=== PATIENT | female | born 1965 | race Caucasian/White ===

== ENCOUNTER 2021-09-25 13:50 | Outpatient (CLI) | payer BC, SELFPAY ==
--- NOTE | 2021-10-06 11:27 | WPDSLEEPSTUD ---
Sleep Study Date of Study: 09/25/21 Ordering Provider: ROSHNI Farah Interpreting Physician: Nini Peña MD Sleep Study Type: Polysomnogram Height: 1.65 m Weight: 78.925 kg Body Mass Index: 28.9 Neck Circumference (inches): 13.5 [place]: 9 Reason for Sleep Study Hypersomnolence Sleep History Margaret Sewell is a 55-year-old woman with restless sleep, frequent night time awakenings, and frequent loud snoring. She has excess daytime sleepiness. She has taken sleeping pills in the past. She occasionally awakens from sleep feeling short of breath and occasionally awakens at night with heartburn, belching and coughing. She constantly has trouble sleeping with a cold. She rarely wakes up gasping for breath at night. She does not have breathing problems at night observed by others. She frequently sweats excessively at night. She rarely notices her heart pounding or beating irregularly at night. She rarely falls asleep during the day, rarely falls asleep to never falls asleep while driving. She does not have loss of muscle tone with strong emotion. She occasionally has daytime difficulties due to excessive sleepiness. She rarely feels paralyzed on waking or falling asleep. She rarely has vivid dreamlike scenes upon awakening or falling asleep. She does not feel afraid to go to sleep. She rarely has nightmares. She occasionally remembers her dreams. She frequently has racing thoughts. She occasionally feels sad, depressed and anxious. She frequently has muscular tension. She a visually notices parts body jerk aching. She does not kick at night. She patient has crawling and aching in her legs and occasionally has pain during night. She occasionally has morning jaw pain. She occasionally grinds her teeth during sleep. She frequently is bothered by pain during the day and frequently awakened by pain at night. She frequently wakes up feeling stiff in the morning with sore achy muscles and pain in the neck and spine. She has headaches, palpitations, fatigue, memory and concentration difficulties. Her partner moves to the sofa at night due to her snoring. She reports on her sleep survey that she had a past history of anxiety and depression. Normal bedtime is between 9:00 p.m. and 9:30 p.m. falling asleep within 30 minutes, typically awaken 2-3 times at night to go the bathroom. She wakes in the morning between 4:00 a.m. and 4:30 a.m.. On weekends, she goes to bed between 10:00 p.m. and 11:00 p.m., wakes at 8:00 a.m. She estimates getting 6-7 hours of sleep at night. She does not generally take naps in the afternoon or evening. A short nap sometimes is refreshing. She is usually drowsy in the morning for 3 hours or longer. She feels better in the morning compared to other times of day. Habits: Never smoked tobacco. Caffeine: 2 cups of tea daily. Alcohol on occasion. No recreational drugs. [facility] Past Medical History Medical History Chronic LLQ pain Dietary counseling and surveillance (09/01/16) Elevated TSH Irritable bowel syndrome with both constipation and diarrhea Low sodium levels Other chronic pain Screening for diabetes mellitus Screening for lipid disorders Screening for thyroid disorder Surgical History Surgical History (Updated 10/06/21 @ 11:46 by Nini Peña MD) H/O: hysterectomy History of cholecystectomy History of tonsillectomy Family History Family History Father Cerebrovascular accident Heart disease Alzheimer's disease Mother Cerebrovascular accident Psoriatic arthritis Grandparent Cerebrovascular accident Family history of type 2 diabetes mellitus Sibling No problems noted. Other Hypertension Social History Social History Second hand tobacco smoke exposure: Yes Alcohol intake: current Subs
[2021-10-06 15:14] VITALS: BMI 28.9
--- NOTE | 2021-10-17 16:12 | WPDSLEEPSTUD ---
Sleep Study Date of Study: 09/25/21 Ordering Provider: ROSHNI Farah Interpreting Physician: Cristiane Neville DO Sleep Study Type: Polysomnogram Height: 1.65 m Weight: 78.925 kg Body Mass Index: 28.9 Neck Circumference (inches): 13.5 [place]: 9 Reason for Sleep Study Loud snoring, frequent nighttime awakenings Sleep History The patient is a 55-year-old female with irritable bowel syndrome, asthma, GERD, seasonal allergies, anxiety and depression that had a sleep study ordered for evaluation of sleep apnea. The patient occasionally awakens from sleep short of breath. She occasionally awakens at night with heartburn, belching or cough. She frequently snores loud enough that others complain. She constantly has trouble breathing when she has a cold. She rarely wakes up gasping for air throughout the night. She denies having breathing problems at night observed by herself or others. She frequently sweats excessively at night. She rarely has heart palpitations or irregular heartbeats during the night. She rarely falls asleep during the day and never while driving. She occasionally has trouble at school or work due to sleepiness. He rarely feels unable to move when waking up or falling asleep. She denies experiencing loss of muscle tone when extremely emotional. She rarely experiences vivid dreamlike scenes upon awakening or falling asleep. He rarely has nightmares. She frequently has thoughts racing through her mind. She occasionally feels sad, depressed and anxious. She frequently has muscular tension. She occasionally notices parts of her body jerk. She denies kicking during the night. She occasionally has crawling and aching feelings in her legs. She occasionally has leg pain during the night. She occasionally grinds her teeth during sleep and occasionally awakens with morning jaw pain. She is frequently bothered by pain during the day and frequently awakened by pain during the night. She frequently wakes up feeling stiff in the morning. She frequently wakes up with sore achy muscles. She frequently wakes up with pain in the neck, spine and other joints. She goes to bed between 9 and 9:30 p.m. on weekdays and between 10 and 11:00 p.m. on weekends. Takes her 30 minutes to fall asleep. She wakes up 2-3 times throughout the night to use the restroom. Sometimes she is unable to fall back asleep. She wakes up between 4 and 4:30 a.m. on weekdays and 8:00 a.m. on the weekends. She typically gets 6-7 hours of sleep per night. She currently lives with a significant other. She does not consume any caffeinated beverages within 2 hours of bedtime. She does not engage in physical exercise before bedtime. She will watch television before falling asleep. She does not take naps in the afternoon or the evening. She drinks 2 cups of caffeinated tea per day. She will occasionally drink alcohol. She denies tobacco and recreational drug use. [facility] Past Medical History Medical History Chronic LLQ pain Dietary counseling and surveillance (09/01/16) Elevated TSH Irritable bowel syndrome with both constipation and diarrhea Low sodium levels Other chronic pain Screening for diabetes mellitus Screening for lipid disorders Screening for thyroid disorder Surgical History Surgical History H/O: hysterectomy History of cholecystectomy History of tonsillectomy Family History Family History Father Cerebrovascular accident Heart disease Alzheimer's disease Mother Cerebrovascular accident Psoriatic arthritis Grandparent Cerebrovascular accident Family history of type 2 diabetes mellitus Sibling No problems noted. Other Hypertension Social History Social History Second hand tobacco sm
[2021-10-17 16:29] VITALS: BMI 28.9
== END 2021-09-26 07:06 | disposition home or self-care (01) ==
LOC: ANHCSM 13:53
PROVIDERS: PCP Family Medicine; Visit Provider Nurse Practitioner Family
DX: R06.83 Snoring (principal); F51.8 Other sleep disorders not due to a substance or known physiological condition; R53.83 Other fatigue; G47.10 Hypersomnia, unspecified
CPT/HCPCS: 95810

== ENCOUNTER 2022-03-13 09:30 | Outpatient (CLI) | payer BC, SELFPAY ==
--- NOTE | ~2022-03-13 | MM_ITS ---
EXAMINATION: MM screening yumiko BI w donn HISTORY: Screening mammogram TECHNIQUE: Craniocaudal and mediolateral oblique 3-D tomosynthesis images were obtained and synthetic 2-D images were generated. CAD analysis was submitted and interpreted. COMPARISON: No prior mammogram is available for comparison at this institution. BREAST PARENCHYMAL COMPOSITION: There are scattered areas of fibroglandular density. FINDINGS: There is no evidence of suspicious mass, calcification, or architectural distortion to sugg est malignancy in either breast. There has been no suspicious interval change. IMPRESSION: 1. No mammographic evidence of malignancy. 2. Recommend routine screening mammography in one year. BI-RADS Category 1: Negative Reviewed, dictated and finalized at location A.
== END 2022-03-13 09:31 | disposition home or self-care (01) ==
PROVIDERS: PCP Family Medicine; Visit Provider Nurse Practitioner Women's Health
DX: Z12.31 Encounter for screening mammogram for malignant neoplasm of breast (principal); R73.09 Other abnormal glucose
CPT/HCPCS: 36415; 77063; 77067; 83036

== ENCOUNTER 2023-04-16 14:02 | Outpatient (CLI) | payer BC, SELFPAY ==
--- NOTE | ~2023-04-16 | MM_ITS ---
EXAMINATION: MM screening yumiko BI w donn HISTORY: Screening TECHNIQUE: Craniocaudal and mediolateral oblique 3-D tomosynthesis images were obtained and synthetic 2-D images were generated. CAD analysis was submitted and interpreted. COMPARISON: Comparison to multiple prior studies sequentially, with oldest reviewed study dated 03/30. BREAST PARENCHYMAL COMPOSITION: Breast composed of scattered areas of fibroglandular density FINDINGS: There is no evidence of suspicious mass, calcification, or architectural distortion to sugg est malignancy in either breast. There has been no suspicious interval change. IMPRESSION: 1. No mammographic evidence of malignancy. 2. Recommend routine screening mammography in one year. BI-RADS Category 1: Negative Reviewed, dictated and finalized at location A.
== END 2023-04-16 14:03 | disposition home or self-care (01) ==
LOC: ANHIMG 14:06
PROVIDERS: PCP Family Medicine; Visit Provider Obstetrics & Gynecology
DX: Z12.31 Encounter for screening mammogram for malignant neoplasm of breast (principal)
CPT/HCPCS: 77063; 77067

== ENCOUNTER 2024-05-28 21:24 | Emergency (ER) | payer BC, SELFPAY ==
--- NOTE | ~2024-05-28 | CT_ITS ---
Non-contrast CT scan of the Abdomen and Pelvis Clinical indication: Abdominal pain Technique: 2.5 mm axial scans were obtained through the abdomen and pelvis without intravenous or or al contrast. Dose reduction technique was used on this scan by utilizing automated exposure control a nd iterative reconstruction technique. The dose-length product (DLP) was 585.54 mGy-cm. Findings: Images through the lung bases reveal no abnormalities. There is a 7 x 3 mm stone at the very proximal left ureter, with mild left hydronephrosis. No right r enal or right ureteral stone. No right hydronephrosis. The liver, spleen, pancreas, and adrenals appear normal. Cholecystectomy clips are present. There is no aortic aneurysm. There is no evidence of bowel obstruction. Images through the pelvis were performed. There is no evidence of ascites or lymphadenopathy. Urinary bladder unremarkable. Status post probable hysterectomy. No pelvic mass seen. Impression: 7 x 3 mm proximal left ureteral stone with mild left hydronephrosis. Reviewed, dictated and finalized at [facility]. [employer] Impression: 7 x 3 mm proximal left ureteral stone with mild left hydronephrosis.
[2024-05-28 21:26] VITALS: BP 152/98; PULSE 102; RESP 16; TEMP 35.8; O2SAT 99
[2024-05-29 00:18] VITALS: BP 162/97; PULSE 89; RESP 16; O2SAT 98
[2024-05-29 00:31] LABS: Add Urine Microscopic? NO; Appearance Urine Clear (Clear); Bilirubin Urine Negative (Negative); Blood Urine Negative (Negative); Color Urine Yellow (Yellow); Glucose Urine UA Negative (Negative); Ketones Urine Negative (Negative); Leukocyte Esterase Ur Negative LEU/UL (Negative); Nitrate Urine Negative (Negative); Protein Urine Negative (Negative); Specific Grav Ur 1.005 (1.001-1.035); Urobilinogen Urine 0.2 mg/dL (<2.0)
[2024-05-29 00:49] LABS: Basophils Percent Auto 0.2 % (0.2-1.2); Eosinophils Absolute Auto 0.1 K/mm3 (0-0.3); Eosinophils Percent Auto 0.5 % (0-4.4); Hematocrit 46.5 % (37.0-47.0); Hemoglobin 16.3 g/dL (12.0-15.0); Immature Granulocyte Absolute 0.04 K/mm3 (0.00-0.031); Immature Granulocyte Percent A 0.4 % (0-0.5); Lymphocytes Percent Auto 18.8 % (18.3-44.2); Mean Corpuscular HGB Conc 35.1 g/dl (32-36); Mean Corpuscular Hemoglobin 30.5 pg (26-34); Mean Corpuscular Volume 87.1 fl (80-100); Mean Platelet Volume 10.3 fl (7.4-10.4); Monocytes Absolute Auto 0.7 K/mm3 (0.1-0.6); Monocytes Percent Auto 6.5 % (2.6-8.5); Neutrophils Absolute Auto 8.3 K/mm3 (1.3-6.7); Neutrophils Percent Auto 73.6 % (45.5-73.1); Platelet Count Result 242 k/mm3 (150-375); Red Blood Count 5.34 M/mm3 (4.2-5.4); White Blood Count 11.2 K/mm3 (4.5-10.0)
[2024-05-29 01:06] LABS: Alanine Aminotransferase 24 U/L (6-35); Albumin Level 4.6 g/dL (3.5-5.1); Alkaline Phosphatase 121 U/L (38-126); Anion Gap 5 mmol/L (4-12); Aspartate Amino Transferase 28 U/L (14-36); Bilirubin,Total 0.6 mg/dL (0.2-1.3); Blood Urea Nitrogen 18 mg/dL (7-17); Calcium 10.1 mg/dL (8.4-10.2); Carbon Dioxide 29 mmol/L (22-30); Chloride 106 mmol/L (98-107); Estimated CRCL calculation 65 ml/min; Estimated Glomerular Filt Rate > 60; Glucose 128 mg/dL (65-110); Lipase 84 U/L (23-300); Potassium 4.8 mmol/L (3.4-5.0); Sodium 140 mmol/L (137-145)
--- NOTE | 2024-05-29 01:15 | ED_ITS ---
HPI - Abdominal Pain General Chief Complaint: Urogenital-Female Stated Complaint: Urogenital Time Seen by Provider: 05/29/24 00:03 History of Present Illness HPI narrative: 58-year-old female with history of CHYA, hyperlipidemia, IBS presents to the emergency department for left flank pain and left abdominal pain that started today. Patient endorses a history of kidney stones in 2010 and is concerned she has another kidney stone. She describes the pain is colicky in nature. States it was worse earlier today and is about a 3/10 at the time of my evaluation. She denies nausea or vomiting fever, dysuria or hematuria, urinary frequency urgency. She endorses a history of exploratory laparotomy for endometriosis and laparoscopic cholecystectomy. Related Data Allergies Allergy/AdvReac Type Severity Reaction Status Date / Time iodine Allergy Intermediate Rash Verified 06/22/23 15:33 latex Allergy Intermediate Rash Verified 06/22/23 15:33 povidone-iodine Allergy Intermediate rash Verified 06/22/23 15:33 Sulfa (Sulfonamide Allergy Intermediate Rash Verified 06/22/23 15:33 Antibiotics) fentanyl Allergy Unknown SEVERE Verified 06/22/23 15:33 VOMITING Contrast Media Allergy Intermediate Rash Uncoded 06/22/23 15:33 Review of Systems Review of Systems: All systems reviewed & are unremarkable except as noted in HPI and below PMFSH Past Medical History Medical History Chronic LLQ pain Dietary counseling and surveillance (09/01/16) Elevated TSH Irritable bowel syndrome with both constipation and diarrhea Low sodium levels Other chronic pain Screening for diabetes mellitus Screening for lipid disorders Screening for thyroid disorder Surgical History Surgical History H/O: hysterectomy History of cholecystectomy History of tonsillectomy Family History Family History Father Cerebrovascular accident Heart disease Alzheimer's disease Mother Cerebrovascular accident Psoriatic arthritis Grandparent Cerebrovascular accident Family history of type 2 diabetes mellitus Sibling No problems noted. Other Hypertension Social History Social History Smoking status: Never smoker Second hand tobacco smoke exposure: Yes Alcohol intake: current Substance use: never Substance use type: does not use Do You Feel Safe in your Home?: Yes Lack of Transportation: No Lack of Food: Never True Current Housing: I Have Housing Concerned About Future Housing: No Difficulty Paying Gas/Electric Bills: No Difficulty Paying for Meds: No Currently Unemployed: No Education: Bachelor's Degree Difficulty w/ Childcare or Family Care: No Living arrangements: with family Occupation/Education: occupation Additional occupation/education comments: RN Gender identity (if verbalized by the patient): Female Exam Narrative: GENERAL: Well-appearing, well-nourished, and in no acute distress. HEAD: Normocephalic, atraumatic. EYES: EOMI. ENT: Nares clear, no rhinorrhea or epistaxis. Mucous membranes moist. NECK: Supple. CHEST: Clear to auscultation. No respiratory distress. HEART: Regular rate and rhythm. No murmur heard. Normal peripheral pulses. ABDOMEN: Normoactive bowel sounds. Abdomen soft with tenderness in the left upper and left lower quadrants. No rebound or rigidity. No guarding. left- sided CVA tenderness EXTREMITIES: Normal range of motion. No edema. SKIN: Warm, dry, no rash. NEURO: No focal deficits. Alert and oriented x3 Course Vital Signs Vital signs: Vital Signs Temperature 96.5 F L 05/28/24 21:26 Pulse Rate 102 H 05/28/24 21:26 Respiratory Rate 16 05/28/24 21:26 Blood Pressure 152/98 H 05/28/24 21:26 Pulse Oximetry 99 05/28/24 21:26 Oxygen Delivery Room Air 05/28/24 21:26 Temperature 96.5 F L 05/28/24 21:26 Pulse Rate 89 05/29/24 00:18 Respiratory Rate 16 05/29/24 00:18 Blood Pressure 162/97 H 05/29/24 00:18 Pulse Oximetry 98 05/29/24 00:18 Oxygen Delivery Room Air 05/28/24 21:26 MDM - Abdominal Pain MDM Narrative Medical decision making narrative: 58-year-old female presents emergency department for left flank pain and left- sided abdominal pain that started today. Vitals with elevated blood pressure. She is afebrile nontoxic appearing. Exam is significant for the above. CBC with mild leukocytosis of 11.2. Chemistries are unremarkable with normal creatinine. UA without infection or UTI. Lipase is normal. CT abdomen pelvis shows an obstructing 7 mm left proximal ureteral stone with mild hydronephrosis of the left kidney. Patient updated on all workup. Upon re-evaluation she remains resting comfortably in exam bed and politely declining pain medications. discussed the case with Urology on-call, Dr. Santiago, who advises the patient can be admitted to the hospital if she desires for discharge home if she wishes. The patient is requesting to be discharged home. Will provide [place], Zofran, Flomax and urine strainer. She was given follow-up with urology discussed strict ED return precautions. She is agreeable with the plan and verbalized understanding. Discharged in stable condition. Lab Data 05/29/24 00:43 05/29/24 00:43 Labs: Lab Results 05/29/24 05/29/24 Range/Units 00:02 00:43 WBC 11.2 H (4.5-10.0) K/mm3 RBC 5.34 (4.2-5.4) M/mm3 Hgb 16.3 H (12.0-15.0) g/dL Hct 46.5 (37.0-47.0) % MCV 87.1 (80-100) fl MCH 30.5 (26-34) pg MCHC 35.1 (32-36) g/dl RDW 12.0 (11.5-14.5) % Plt Count 242 (150-375) k/mm3 MPV 10.3 (7.4-10.4) fl Immature Gran % (Auto) 0.4 (0-0.5) % Neut % (Auto) 73.6 H (45.5-73.1) % Lymph % (Auto) 18.8 (18.3-44.2) % [place] % (Auto) 6.5 (2.6-8.5) % Eos % (Auto) 0.5 (0-4.4) % Baso % (Auto) 0.2 (0.2-1.2) % Lymph # (Auto) 2.10 (0.9-3.2) K/mm3 [place] # (Auto) 0.7 H (0.1-0.6) K/mm3 Eos # (Auto) 0.1 (0-0.3) K/mm3 Baso # (Auto) 0.0 (0.0-0.1) K/mm3 Abs Immat Gran (auto) 0.04 H (0.00-0.031) K/mm3 Absolute Neuts (auto) 8.3 H (1.3-6.7) K/mm3 Absolute Nucleated RBC 0.000 (0.0-0.012) K/mm3 Nucleated RBC % 0.0 (0.0-0.2) % Sodium 140 (137-145) mmol/L Potassium 4.8 (3.4-5.0) mmol/L Chloride 106 (98-107) mmol/L Carbon Dioxide 29 (22-30) mmol/L Anion Gap 5 (4-12) mmol/L BUN 18 H (7-17) mg/dL Creatinine 0.90 (0.7-1.0) mg/dL Estim Creat Clear Calc 65 ml/min Estimated GFR > 60 (59 - ) Glucose 128 H (65-110) mg/dL Calcium 10.1 (8.4-10.2) mg/dL Total Bilirubin 0.6 (0.2-1.3) mg/dL AST 28 (14-36) U/L ALT 24 (6-35) U/L Alkaline Phosphatase 121 (38-126) U/L Total Protein 8.0 (6.3-8.2) g/dL Albumin 4.6 (3.5-5.1) g/dL Lipase 84 (23-300) U/L Urine Color Yellow (Yellow) Urine Appearance Clear (Clear) Urine pH 6.0 (5.0-9.0) Ur Specific [place] 1.005 (1.001-1.035) Urine Protein Negative (Negative) mg/dL Urine Glucose (UA) Negative (Negative) mg/dL Urine Ketones Negative (Negative) mg/dL Ur Blood (Man) Negative (Negative) Urine Nitrate Negative (Negative) Urine Bilirubin Negative (Negative) Urine Urobilinogen 0.2 (<2.0) mg/dL Leukocyte Esterase Rfl Negative (Negative) BEN/UL Discharge Plan Discharge Clinical Impression: Calculus of left ureter Patient Disposition: Home, Self-Care Condition: Stable Instructions: Antibiotic Form, Kidney Stones (ED) Additional Instructions: Your evaluated in the emergency department for abdominal pain and flank pain. You were found have a 7 mm kidney stone in the left ureter. Take the medications as directed as needed follow-up closely with Urology. Return to the emergency department if you develop intractable pain, you are unable to tolerate food or fluids, fever, or other concerning symptoms. Prescriptions: New ondansetron 4 mg tablet,disintegrating 4 mg PO Q8H Qty: 14 0RF hydrocodone-acetaminophen 5-325 mg tablet 1 tablet PO Q8H PRN (Reason: pain) Qty: 14 0RF tamsulosin [Flomax] 0.4 mg capsule 0.4 mg PO HS Qty: 14 0RF No Action calcium carbonate [Calcium 500] 500 mg calcium (1,250 mg) tablet,chewable 500 mg PO DAILY Qty: 1 0RF Follow-up/Referrals: Bulmaro Lucas MD [Physician] - 1 Day Duke Bell MD [Primary Care Provider] -
[2024-05-29] MEDS: HYDROcodone/acetaminophen (*CRX) 5-325 MG TABLET 1 TAB PO (02:45)
[2024-05-29] MEDS: ONDANSETRON HCL ODT 4 MG TABLET PO (02:45)
== END 2024-05-29 02:57 | disposition home or self-care (01) ==
PROVIDERS: Emergency Medicine; Emergency Provider Physician Assistant; PCP Family Medicine
DX: N20.1 Calculus of ureter (principal); E78.5 Hyperlipidemia, unspecified
CPT/HCPCS: 36415; 74176; 80053; 81003; 83690; 85025; 99284; A9270

== ENCOUNTER 2024-05-30 01:27 | Day surgery (SDC) | payer BC, SELFPAY ==
[2024-05-29 11:52] VITALS: BMI 31.6
--- NOTE | 2024-05-29 11:54 | PC.NURSE ---
Report to the Outpatient Waiting Room, entrance under the green pavilion located off [facility], at time _1030_ on date _[id number]_. Planned Procedure Time: _1230_.? Time changes happen often and if your time is changed the preop area will call you the afternoon before. - You and your visitor will be asked to self-screen and do not enter if you have any COVID symptoms. Please call surgeon if you need to reschedule. - A mask is optional within the hospital at this time. Patients may have clear liquids (water, carbonated beverages, clear teas, apple juice) until 3 hours prior to surgery with a maximum of 20 ounces. - No food from midnight until time of surgery and no smoking. This includes no chewing gum, candy or mints. Take only the following medications with a SIP of water on the morning of surgery: ___Pain or nausea med if needed. DO NOT STOP ANY OF YOUR OTHER PRESCRIPTION MEDICATIONS PRIOR TO SURGERY EXCEPT THE FOLLOWING Medications to discontinue per physician ____None____ Date to take last dose Please no make-up, nail lithuanian, hairspray, perfume, deodorant, or body powder the day of surgery.? No jewelry (including any body piercings) or valuables the day of surgery, leave them at home.? Please take a shower or bath the night before, or the morning of, surgery with an antibacterial soap.? Wear comfortable, loose fitting clothing.? - Jewelry must be removed prior to entering the operating room.? Rings and piercings that are not removed may be cut off. - The hospital will not accept responsibility for valuables.? - Please leave all valuables, including medications, at home the day of surgery. If you are going home after surgery, a licensed local company tanker driver must drive you home.? - NO public transportation without another adult if you receive anesthesia. - We recommend that an adult stay with you for 24 hours following discharge. - We also recommend that you do not drive, make important decision, drink alcoholic beverages, or take any drugs that were not prescribed by your health care provider for at least 24 hours after your discharge time. Follow any additional instructions given to you from your surgeon. Telephone instructions given to __Margaret__and asked if any additional questions and then verbalized understanding. Patient advised to call surgeon office or pre surgery nurse liaison [phone] if any additional questions.
[2024-05-30] VITALS (13 sets, daily range): BP systolic 134–166; BP diastolic 72–98; PULSE 70–95; RESP 12–16; TEMP 36.2–37.5; O2SAT 98–100; BMI 31.2
--- NOTE | ~2024-05-30 | XR_ITS ---
EXAMINATION: XR retrograde pyelo w/stent LT DATE: 05/30/2024 13:00 INDICATION: Left internal ureteral stent placement TECHNIQUE: Fluoroscopic images from a left internal ureteral stent placement are submitted for review . 12 seconds of fluoroscopy time. 3 fluoroscopic images FINDINGS: There is a left double-J internal ureteral stent projecting in expected position, with proximal Paisley loop at the level of the renal pelvis. The distal loop is not visualized.. IMPRESSION: 1. Left internal ureteral stent placement. Please refer to real-time procedural findings for detail s. Reviewed, dictated and finalized at location B. NCT PHYSICAL EDUCATION INSTRUCTOR IMPRESSION: 1. Left internal ureteral stent placement. Please refer to real-time procedur al findings for details.
--- NOTE | 2024-05-30 10:44 | WPDHPUPDATE1 ---
History and Physical Update Update Date/Time: 05/30/24 10:44 History and Physical has been reviewed, including an updated exam of the patient. There are NO changes in the patient's condition. Risks, benefits, and alternatives have been discussed and questions answered. Patient agrees to proceed with procedure. Proceed with cystoscopy, left retrograde pyelogram, left ureteroscopy with possible holmium laser stone extraction stent placement
[2024-05-30] MEDS: LACTATED RINGERS 1,000 ML 30 ML IV CONT ×2 (11:30→14:04)
--- NOTE | 2024-05-30 12:13 | P.PNAN_ITS ---
Anes - Initial Pre Proc Eval Procedure: Operation Date: 05/30/24 12:30 Proposed Procedures p Cystoscopy, Left Ureteroscopy, Possible Left Retrograde Pyelogram, Possible Left Stone Extraction, Possible Left Stent Placement, Possible Holmium Laser - Ran Rodrigues MD Date/Time: 05/30/24 12:13 Surgeon: Ran Rodrigues MD Pre Op Diagnosis: left kidney stone Patient Data Age: 58 Gender: F Height: 1.65 m Weight: 85.2 kg Last Vital Signs Temp 37.5 C 05/30/24 10:35 Pulse 95 05/30/24 10:35 Resp 16 05/30/24 10:35 BP 158/93 H 05/30/24 10:35 Pulse Ox 99 05/30/24 10:35 O2 Del Method Room Air 05/30/24 10:35 Allergies Allergy/AdvReac Type Severity Reaction Status Date / Time latex Allergy Intermediate Rash Verified 05/30/24 10:46 Sulfa (Sulfonamide Allergy Intermediate Rash Verified 05/30/24 10:46 Antibiotics) fentanyl Allergy Unknown SEVERE Verified 05/30/24 10:46 VOMITING Home Medications Medication Instructions Recorded Confirmed Type hydrocodone 5 mg-acetaminophen 325 1 tablet PO Q8H PRN pain #14 tabs 05/29/24 05/29/24 Rx mg tablet ondansetron 4 mg disintegrating 4 mg PO Q8H #14 tabs 05/29/24 05/29/24 Rx tablet tamsulosin 0.4 mg capsule (Flomax) 0.4 mg PO HS #14 caps 05/29/24 05/29/24 Rx Patient hx anesthesia problems: none Family hx anesthesia problems: none Results Review: All pre-operative results and documents have been reviewed as part of the pre- operative evaluation. [facility] Past Medical History Medical History Chronic LLQ pain Dietary counseling and surveillance (09/01/16) Elevated TSH Irritable bowel syndrome with both constipation and diarrhea Low sodium levels Other chronic pain Screening for diabetes mellitus Screening for lipid disorders Screening for thyroid disorder Surgical History Surgical History H/O: hysterectomy History of cholecystectomy History of tonsillectomy Family History Family History Father Cerebrovascular accident Heart disease Alzheimer's disease Mother Cerebrovascular accident Psoriatic arthritis Grandparent Cerebrovascular accident Family history of type 2 diabetes mellitus Sibling No problems noted. Other Hypertension Social History Social History Smoking status: Never smoker Second hand tobacco smoke exposure: Yes Alcohol intake: current Drinks per week: 3 Substance use: never Substance use type: does not use Do You Feel Safe in your Home?: Yes Lack of Transportation: No Lack of Food: Never True Current Housing: I Have Housing Concerned About Future Housing: No Difficulty Paying Gas/Electric Bills: No Difficulty Paying for Meds: No Currently Unemployed: No Education: Bachelor's Degree Difficulty w/ Childcare or Family Care: No Living arrangements: with family Occupation/Education: occupation Additional occupation/education comments: RN Gender identity (if verbalized by the patient): Female Spiritual care concerns: No Anes - Eval Final PreProcedure Day of Procedure 05/30/24 12:13 Patient weight: obese Heart: regular rate and rhythm Lungs: clear to auscultation Airway: Mallampati scale class II Neurological: alert and oriented Last oral intake: >/= 8 hours ASA classification: II Emergent: no Anesthetic plan: proceed Anesthesia type and monitoring: general Results Review: All pre-operative results and documents have been reviewed as part of the pre- operative evaluation. Informed Consent: The patient's anesthetic plan and its attendant risks and benefits were discussed with the patient/family/POA. Questions were solicited and answers provided to the satisfaction of the patient/family/POA.
[2024-05-30] MEDS: ceFAZolin 2 GM/D5W 50 ML 2 GM/50 ML BAG IVPB (12:22)
[2024-05-30] MEDS: LIDOCAINE HCL 2% GEL UROJET 10 ML PKG MUCOUS MEM (12:39)
--- NOTE | 2024-05-30 12:52 | P.OP_ITS ---
Procedure Note - Detailed Date of Procedure 05/30/24 Pre-op Diagnosis left kidney stone Post-op Diagnosis Same (Urethral narrowing) Procedure Performed Urethral dilation. Cystoscopy, left retrograde pyelogram, left ureteroscopy with laser, stent placement 4.8 Trin[place] contour Surgeon Ran Rodrigues MD Anesthesia General Description of Procedure Patient is taken the operative suite correctly identified. Once anesthesia was obtained she was placed in dorsal lithotomy position prepped draped usual steril e fashion. Her meatus would not allow and passage of a 19 Trin[place] scope. I thus dilated up to 22 Trinidadian using female sounds. Nineteen Trinidadian scope was then inserted into bladder. There were no tumors noted. Left ureteral orifice was cannulated with a guidewire. I dilated the orifice with an 8/10 dilator. Ureteral access sheath was then placed. Mini flexible ureteral scope was inserted. The stone had migrated back into the kidney. Using a 200 micron fiber I dusted and fragmented the stone. No stones were large enough for retrieval. Inspection of the kidney revealed no significant stone burden. Pyelogram was then performed to confirm placement of the stent. 4.8 Trin[place] contour stent was then placed with the proximal end coiled in the renal pelvis and the distal in the bladder. Bladder was drained. 2% viscous lidocaine was inserted into the urethra patient is taken recovery stable condition. She will have her stent removed at the time of her prolapse repair by Dr. Pineda. This completes dictation. Please send a copy of op note to my office.
[2024-05-30] MEDS: ONDANSETRON INJ 4 MG/2 ML VIAL IV PUSH (13:16)
[2024-05-30] MEDS: MORPHINE SULFATE INJ (*CRX) 10 MG/ML AMP 2 MG IV PUSH ×3 (13:28→14:23)
[2024-05-30] MEDS: diphenhydrAMINE HCl INJ 50 MG/ML VIAL 25 MG IV PUSH (13:28)
[2024-05-30] MEDS: PROCHLORPERAZINE EDISYLATE 10 MG/2 ML VIAL IV PUSH (14:37)
== END 2024-05-30 15:49 | disposition home or self-care (01) ==
PROVIDERS: PCP Family Medicine; Visit Provider Urology
PROC: (CPT 52352; principal; 2024-05-30 12:30)
DX: N20.0 Calculus of kidney (principal); K58.2 Mixed irritable bowel syndrome; G89.29 Other chronic pain; R10.32 Left lower quadrant pain; N32.81 Overactive bladder; N39.3 Stress incontinence (female) (male); R35.1 Nocturia; N81.6 Rectocele; E66.9 Obesity, unspecified; Z68.31 Body mass index [BMI] 31.0-31.9, adult; Z79.891 Long term (current) use of opiate analgesic; Z98.890 Other specified postprocedural states; Z90.49 Acquired absence of other specified parts of digestive tract; Z82.49 Family history of ischemic heart disease and other diseases of the circulatory system
CPT/HCPCS: 52356; 74420; A9270; C1758; C1769; C1894; C2617; J0690; J0780; J1100; J1200; J2250; J2270; J2405; J2704; J7120; Q9966

== ENCOUNTER 2024-06-09 00:47 | Day surgery (SDC) | payer BC, SELFPAY ==
[2024-05-29 14:01] VITALS: BMI 31.6
--- NOTE | 2024-05-29 14:06 | PC.NURSE ---
Report to the Outpatient Waiting Room, entrance under the green pavilion located off [facility], at time _0930_ on date _[id number]_. Planned Procedure Time: _1130_.? Time changes happen often and if your time is changed the preop area will call you the afternoon before. - You and your visitor will be asked to self-screen and do not enter if you have any COVID symptoms. Please call surgeon if you need to reschedule. - A mask is optional within the hospital at this time. Patients may have clear liquids (water, carbonated beverages, clear teas, apple juice) until 3 hours prior to surgery with a maximum of 20 ounces. - No food from midnight until time of surgery and no smoking. This includes no chewing gum, candy or mints. Take only the following medications with a SIP of water on the morning of surgery: ___Pain or nausea med if needed. DO NOT STOP ANY OF YOUR OTHER PRESCRIPTION MEDICATIONS PRIOR TO SURGERY EXCEPT THE FOLLOWING Medications to discontinue per physician ____None____ Please no make-up, nail stateless, hairspray, perfume, deodorant, or body powder the day of surgery.? No jewelry (including any body piercings) or valuables the day of surgery, leave them at home.? Please take a shower or bath the night before, or the morning of, surgery with an antibacterial soap.? Wear comfortable, loose fitting clothing.? - Jewelry must be removed prior to entering the operating room.? Rings and piercings that are not removed may be cut off. - The hospital will not accept responsibility for valuables.? - Please leave all valuables, including medications, at home the day of surgery. If you are going home after surgery, a licensed wedding transportation driver must drive you home.? - NO public transportation without another adult if you receive anesthesia. - We recommend that an adult stay with you for 24 hours following discharge. - We also recommend that you do not drive, make important decision, drink alcoholic beverages, or take any drugs that were not prescribed by your health care provider for at least 24 hours after your discharge time. Follow any additional instructions given to you from your surgeon. Telephone instructions given to _Margaret__and asked if any additional questions and then verbalized understanding. Patient advised to call surgeon office or pre surgery nurse liaison [phone] if any additional questions.
--- NOTE | 2024-06-04 12:18 | PM.IMHP ---
H&P: HPI History of Present Illness Date/Time: 06/04/24 12:18 Chief Complaint: POP/RAFA Narrative: POP/RAFA/+ stone history Review of Systems Review of Systems: All systems reviewed & are unremarkable except as noted in HPI and below PMFSH Past Medical History Medical History Chronic LLQ pain Dietary counseling and surveillance (09/01/16) Elevated TSH Irritable bowel syndrome with both constipation and diarrhea Low sodium levels Other chronic pain Screening for diabetes mellitus Screening for lipid disorders Screening for thyroid disorder Surgical History Surgical History H/O: hysterectomy History of cholecystectomy History of tonsillectomy Family History Family History Father Cerebrovascular accident Heart disease Alzheimer's disease Mother Cerebrovascular accident Psoriatic arthritis Grandparent Cerebrovascular accident Family history of type 2 diabetes mellitus Sibling No problems noted. Other Hypertension Social History Social History Smoking status: Never smoker Second hand tobacco smoke exposure: Yes Alcohol intake: current Drinks per week: 3 Substance use: never Substance use type: does not use Do You Feel Safe in your Home?: Yes Lack of Transportation: No Lack of Food: Never True Current Housing: I Have Housing Concerned About Future Housing: No Difficulty Paying Gas/Electric Bills: No Difficulty Paying for Meds: No Currently Unemployed: No Education: Bachelor's Degree Difficulty w/ Childcare or Family Care: No Living arrangements: with family Occupation/Education: occupation Additional occupation/education comments: RN Gender identity (if verbalized by the patient): Female Spiritual care concerns: No Meds Home Medications and Allergies Home Medications Medication Instructions Recorded Confirmed Type hydrocodone 5 mg-acetaminophen 325 1 tablet PO Q8H PRN pain #14 tabs 05/29/24 05/29/24 Rx mg tablet ondansetron 4 mg disintegrating 4 mg PO Q8H #14 tabs 05/29/24 05/29/24 Rx tablet tamsulosin 0.4 mg capsule (Flomax) 0.4 mg PO HS #14 caps 05/29/24 05/29/24 Rx nitrofurantoin 100 mg PO Q12H 3 days #6 caps 05/30/24 Rx monohydrate/macrocrystals 100 mg capsule (Macrobid) oxybutynin chloride 5 mg tablet 5 mg PO BID PRN bladder spasms #30 05/30/24 Rx tabs tramadol 50 mg tablet 50 mg PO Q6H PRN pain #20 tabs 05/30/24 Rx Allergies Allergy/AdvReac Type Severity Reaction Status Date / Time latex Allergy Intermediate Rash Verified 05/30/24 10:46 Sulfa (Sulfonamide Allergy Intermediate Rash Verified 05/30/24 10:46 Antibiotics) fentanyl Allergy Unknown SEVERE Verified 05/30/24 10:46 VOMITING Exam Narrative: min cystocele + urethral mobility rectocele to introitus Assessment and Plan Assessment and plan (1) Left renal stone: Code(s): N20.0 - Calculus of kidney Status: Acute (2) Cystocele with rectocele: Code(s): N81.10 - Cystocele, unspecified; N81.6 - Rectocele Status: Acute (3) RAFA (stress urinary incontinence, female): Code(s): N39.3 - Stress incontinence (female) (male) Status: Acute Plan rectocele repair, possible cystocele repair, urethral sling, cysto-remove stent
[2024-06-09] VITALS (11 sets, daily range): BP systolic 99–156; BP diastolic 54–95; PULSE 74–96; RESP 10–16; TEMP 36.3–36.9; O2SAT 98–100; BMI 30.7
--- NOTE | 2024-06-09 07:18 | WPDHPUPDATE1 ---
History and Physical Update Update Date/Time: 06/09/24 07:18 History and Physical has been reviewed, including an updated exam of the patient. There are NO changes in the patient's condition. Risks, benefits, and alternatives have been discussed and questions answered. Patient agrees to proceed with procedure.
--- NOTE | 2024-06-09 10:44 | P.PNAN_ITS ---
Anes - Initial Pre Proc Eval Procedure: Operation Date: 06/09/24 12:00 Proposed Procedures p Cystocele and Rectocele Repair, - Marques Pineda MD s Urethral Sling - Marques Pineda MD Date/Time: 06/09/24 10:44 Surgeon: Marques Pineda MD Pre Op Diagnosis: rectocele, cystocele, stress incont Patient Data Age: 58 Gender: F Height: 1.65 m Weight: 86.4 kg Allergies Allergy/AdvReac Type Severity Reaction Status Date / Time latex Allergy Intermediate Rash Verified 05/30/24 10:46 Sulfa (Sulfonamide Allergy Intermediate Rash Verified 05/30/24 10:46 Antibiotics) fentanyl Allergy Unknown SEVERE Verified 05/30/24 10:46 VOMITING Home Medications ?Medication ?Instructions ?Recorded ?Confirmed ?Type hydrocodone 5 mg-acetaminophen 325 1 tablet PO Q8H PRN pain #14 tabs 05/29/24 05/29/24 Rx mg tablet ondansetron 4 mg disintegrating 4 mg PO Q8H #14 tabs 05/29/24 05/29/24 Rx tablet tamsulosin 0.4 mg capsule (Flomax) 0.4 mg PO HS #14 caps 05/29/24 05/29/24 Rx nitrofurantoin 100 mg PO Q12H 3 days #6 caps 05/30/24 Rx monohydrate/macrocrystals 100 mg capsule (Macrobid) oxybutynin chloride 5 mg tablet 5 mg PO BID PRN bladder spasms #30 05/30/24 Rx tabs tramadol 50 mg tablet 50 mg PO Q6H PRN pain #20 tabs 05/30/24 Rx docusate sodium 100 mg capsule 100 mg PO BID #40 caps 06/09/24 Rx (Colace) hydrocodone 5 mg-acetaminophen 325 1 tablet PO Q6H PRN pain #20 tabs 06/09/24 Rx mg tablet Patient hx anesthesia problems: none Family hx anesthesia problems: none Results Review: All pre-operative results and documents have been reviewed as part of the pre- operative evaluation. [facility] Past Medical History Medical History Chronic LLQ pain Dietary counseling and surveillance (09/01/16) Elevated TSH Irritable bowel syndrome with both constipation and diarrhea Low sodium levels Other chronic pain Screening for diabetes mellitus Screening for lipid disorders Screening for thyroid disorder Surgical History Surgical History History of tonsillectomy History of cholecystectomy H/O: hysterectomy Family History Family History Father Cerebrovascular accident Heart disease Alzheimer's disease Mother Cerebrovascular accident Psoriatic arthritis Grandparent Cerebrovascular accident Family history of type 2 diabetes mellitus Sibling No problems noted. Other Hypertension Social History Social History Smoking status: Never smoker Second hand tobacco smoke exposure: Yes Alcohol intake: current Drinks per week: 3 Substance use: never Substance use type: does not use Do You Feel Safe in your Home?: Yes Lack of Transportation: No Lack of Food: Never True Current Housing: I Have Housing Concerned About Future Housing: No Difficulty Paying Gas/Electric Bills: No Difficulty Paying for Meds: No Currently Unemployed: No Education: Bachelor's Degree Difficulty w/ Childcare or Family Care: No Living arrangements: with family Occupation/Education: occupation Additional occupation/education comments: RN Gender identity (if verbalized by the patient): Female Spiritual care concerns: No Anes - Eval Final PreProcedure Day of Procedure 06/09/24 10:44 Patient weight: overweight Heart: regular rate and rhythm Lungs: clear to auscultation Airway: Mallampati scale class II Neurological: alert and oriented Last oral intake: >/= 8 hours ASA classification: II Emergent: no Anesthetic plan: proceed Anesthesia type and monitoring: general ETT and standard monitoring Results Review: All pre-operative results and documents have been reviewed as part of the pre- operative evaluation. Informed Consent: The patient's anesthetic plan and its attendant risks and benefits were discussed with the patient/family/POA. Questions were solicited and answers provided to the satisfaction of the patient/family/POA.
[2024-06-09] MEDS: LACTATED RINGERS 1,000 ML 30 ML IV CONT ×2 (11:08→13:48)
[2024-06-09] MEDS: ceFAZolin 2 GM/D5W 50 ML 2 GM/50 ML BAG IVPB (11:30)
[2024-06-09] MEDS: BUPIVACAINE/EPINEPHRINE 0.5% 30 ML VIAL INFILTRATE (11:48)
--- NOTE | 2024-06-09 12:31 | P.OP_ITS ---
Procedure Note - Detailed Date of Procedure 06/09/24 Pre-op Diagnosis rectocele, stress incontinence, history of kidney stones Post-op Diagnosis Same Procedure Performed Rectocele repair Urethral sling Cystoscopy with stent removal Surgeon Marques Pineda MD Global Compensation Director Celi Gilbert Anesthesia General Indications This is a female with a rectocele and confirm stress urinary incontinence. She desires surgical correction. She understands the risks of bleeding, infection, injury to the urinary tract, damage to surrounding organs, recurrent prolapse, recurrent stress incontinence, persistent prolapse, persistent stress incontinence vaginal mesh extrusion, urinary tract mesh erosion, dyspareunia, obstructive voiding requiring a secondary procedure, hip and leg pain, dyspareunia, inability to improve overactive bladder symptoms. She agrees to proceed. Findings Uncomplicated rectocele repair, suburethral sling, stent removal Description of Procedure She was correctly identified. Informed consent obtained. She was brought the operating room. She was given appropriate anesthesia. She was given appropriate perioperative antibiotics. A time-out performed. Almanzar catheter exposed. The [place] retractor was placed. Examination revealed a rectocele to the introitus. Cystocele to the hymenal ring which I elected not to repair. I grasped the rectocele with Allis clamps. I infiltrated subcutaneous tissues with local mixed with epinephrine and saline. A midline vaginal incision. I dissected the mucosa off the underlying fascial structures out laterally and back to the apex. I then performed a standard plication type cystocele repair using interrupted 0 Vicryl suture. I took great care not to injure underlying rectum. This completely reduced the rectocele. I trimmed excess vaginal mucosa. I closed the vaginal mucosa with a running 2-0 Vicryl suture after obtaining hemostasis. I marked out the site of the inner thigh incisions. I anesthetized the skin and made those incisions. I anesthetized the anterior vaginal wall over the mid urethra. I made a 1 cm incision. I dissected out laterally taking great care not to injure the refilled vaginal wall. I passed the helical trocars. First on the left. Then on the right. I did this from the thigh incision towards the vaginal incision. The sling was connected to the trocars and brought out through the thigh incision. I tensioned the sling appropriately. I cut and the plastic sheaths. I then closed the incision with 2 0 Vicryl. On cystoscopy there is no tumors or surgical artifact. There was no surgical artifact in the urethra. There was no bladder abnormalities other than the ureteral stent. The ureteral stent was grasped and removed in its entirety. I cut the excess sling material. Close incisions with glue. She was awakened and transferred to the PACU in stable condition. Implants Urethral sling Estimated Blood Loss 50 Drains No Packing No Pathology None sent Complications No immediate complications Condition Stable Disposition PACU
[2024-06-09] MEDS: MORPHINE SULFATE INJ (*CRX) 10 MG/ML AMP 2 MG IV PUSH ×3 (13:15→13:46)
[2024-06-09] MEDS: oxyCODONE HCL (*CRX) 5 MG TAB IR PO (14:52)
== END 2024-06-09 15:05 | disposition home or self-care (01) ==
PROVIDERS: PCP Family Medicine; Visit Provider Urology
PROC: (CPT 57260; principal; 2024-06-09 12:00)
PROC: (CPT 57288; 2024-06-09 12:00)
DX: N81.6 Rectocele (principal); N39.3 Stress incontinence (female) (male); Z46.6 Encounter for fitting and adjustment of urinary device; Z87.442 Personal history of urinary calculi
CPT/HCPCS: 57288; 57250; 52310; A9270; C1771; J0690; J1100; J1171; J1200; J2003; J2250; J2270; J2405; J2704; J7030; J7120

== ENCOUNTER 2025-05-04 09:28 | Outpatient (CLI) | payer BC, SELFPAY ==
--- OUTSIDE RECORDS SUMMARY | 2025-01-12 10:00 | XMS_ITS | Continuity of Care Document ---
Author Organization [facility] Address [address] [place] [id number] Phone Care Team Providers Care Air And Water Tester Name Role Phone Mac MEJIA, FACC, Unavailable Unavailabl e Allergies, Adverse Reactions, Alerts Substance Reaction Status Criticality No Known Allergies Active No Inform ation Medications Medication Instructions Dosage Effective Dates (start - stop) Status Comments estradiol 0.025 mg/24 hr semiweekly transdermal patch - Active hydrocortisone acetate 25 mg rectal suppository - Active docusate sodium 100 mg capsule - Active hydrocodone 5 mg-acetaminophen 325 mg tablet - Active nitrofurantoin monohydrate/macrocrysta ls 100 mg capsule - Active oxybutynin chloride 5 mg tablet - Active tramadol 50 mg tablet - Acti ve ondansetron 4 mg disintegrating tablet TAKE 1 TABLET BY MOUTH EVERY 8 HOURS - Active tamsulosin 0.4 mg capsule TAKE 1 CAPSULE BY MOUTH EVERYDAY AT BEDTIME - Active Problems Condition Type Effective Dates (start - stop) Clini geno Status Comments No Known Problems Procedures Procedure Date CT HRT W/O DYE W/CA TEST Results Test Name Date and Time Measure Units Reference Range Abnormal Flag Status Comments Panel Description: Not Available Final [{Url}] <Url iRemMajorVer fide=1 iRemMinorVer fide=5.9.4 seq_no=[id number] template_nam e=PacsEx>< Path><![CDAT A[[email or web address] [id number]/[id number] [id number]+ X/tr2zLcuzCg Vec/7Zz9K8ms zlnCJkQY1bLI [id number] [id number] IjdDxFYVBIgL B/[id number] ]]></Path></ Url> Final Panel Description: CALCIUM SCORE Unknown Image CALCIUM SCORE 1 Advance Directives Directive Yes / No Effective Date File Name No Information Encounters Encounter Description Practice Location Reason(s) For Visit Diagnoses Date Provider Providers Copied on Encounter [facility] , [address] [place] [address], [id number], tel:[phone] [facility] . [facility] [place], [id number] , . tel: [phone] Referring Provider: Duke Bell, [address], [place], [address]. tel:[phone] [facility] , [address] [place] [address], [id number], tel:[phone] [facility] No Information . [facility] [place], [id number] , . tel:[phone] [facility] , [address] [place] [address], [id number], tel:[phone] [facility] for screening for [facility] [place], [id number] , . tel:[phone] Referring Provider: Mac, [facility] [place], [address]. tel:[phone] Family History Family Member Type Diagnosis Age At Onset No Information Payers Payer name Insurance type Covered libertarian ID Authoriza [email or web address](s) No Information Social History Type Description Quantity Date Captured Comments Sex Female Smoking Status No Information Chief Complaint And Reason For Visit No Information Reason For Referral Reason For Referral No Information History Of Present Illness Encounter Date Complaint History Of Prese nt Illness No Information Functional Status Date Functional Assessmen t No Information Instructions Date Instruction Additional Infor mation No Information Assessments Type Assessment Date No Information Patient Care Teams Name Effective Dates (start - stop) Status Members No Information
--- NOTE | ~2025-05-04 | MM_ITS ---
EXAMINATION: MM screening yumiko BI w donn HISTORY: Screening TECHNIQUE: Craniocaudal and mediolateral oblique 3-D tomosynthesis images were obtained and synthetic 2-D images were generated. CAD analysis was submitted and interpreted. COMPARISON: Comparison to multiple prior studies sequentially, with oldest reviewed study dated 09/01/2016. BREAST PARENCHYMAL COMPOSITION: Not dense: There are scattered areas of fibroglandular density. FINDINGS: There is no evidence of suspicious mass, calcification, or architectural distortion to suggest malignancy in either breast. There has been no suspicious interval change. IMPRESSION: 1. No mammographic evidence of malignancy. 2. Recommend routine screening mammography in one year. BI-RADS Category 1: Negative Reviewed, dictated and finalized at location O. SAFETY SCIENTIST
--- OUTSIDE RECORDS SUMMARY | 2025-05-04 10:11 | XMS_ITS | Clinical Summary ---
Author Organization [facility] Address [address] [place] [address] Care Team Providers Care Repairer Name Role Phone Duke Bell MD Primary Care Provider Allergies Active Allergy Reactions Criticality Noted Date Comments Iodinated Contrast Media Unknown 06/13/2018 Latex Shortness of breath High 10/05/2019 Sulfa (Sulfonamide Antibiotics) Unknown 05/28 Medications ibuprofen (ADVIL,MOTRIN) 200 mg tab/cap Take 200 mg by mouth as needed for pain Active acetaminophen (TYLENOL) 500 mg tablet Take 500 mg by mouth as needed for pain Active fluticasone propionate (FLONASE) 50 mcg/actuation nasal spray 09/26/2021 Active famotidine (PEPCID) 20 mg tablet Active cholecalciferol (VITAMIN D-3) 50,000 unit capsule 09/12/2021 Active Active Problems Problem Noted Date Diagnosed Date Irritable bowel syndrome without diarrhea 2021 Assessment & Plan (10/20/2021 3:08 PM CDT): Add 3 fresh fruits/d and colonoscop[y Gastroesophageal reflux disease 10/20/2021 Assessment & Plan (10/20/2021 3:09 PM CDT): Change H2RA to PPI 20 mg in morning. Weight l;oss Screening for colon cancer 10/20/2021 Overview (10/20/2021): Added automatically from request for surgery [id number] Surgical History Surgery Date Site/Laterality Comments CHOLECYSTECTOMY DILATION AND CURETTAGE OF UTERUS TONSILLECTOMY COLONOSCOPY 06/28/2009 - 06/27/2010 [facility] Medical History Medical History Date Comments IBS (irritable bowel syndrome) Endometriosis Depression, Asthma GERD (gastroesophageal reflux disease) Chronic constipation Chronic diarrhea Family History Medical History Relation Name Comments Heart attack Father psoriatic arthritis Mother Heart attack Paternal Grandmother Relation Name Status Comments Father Mother Paternal Grandmother Social History Tobacco Use Types Packs/Day Years Used Date Smoking Tobacco: Never Alcohol Use Standard Drinks/Week Comments Yes 0 (1 standard drink = 0.6 oz pur e alcohol) Socially AUDIT-C Answer Date Recorded Q1: How often do you have a drink containing alc ohol? 2-3 times a week 10/20/2021 Q2: How many drinks containi ng alcohol do you have on a typical day when you are drinking? 1 or 2 10/20/2021 Q3: How often do you have si x or more drinks on one occasion? 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 Gender Identity Not on file Sexual Orientation Not on file Last Filed Vital Signs Vital Sign Reading Time Taken Comments Blood Pressure 134/82 10/31/2021 11:05 AM CDT Pulse 55 10/31/2021 11:05 AM CDT Temperature 36.6 C (97.8 F) 10/31/2021 10:51 AM CDT Respiratory Rate 20 10/31/2021 11:05 AM CDT Oxygen Saturation 96% 10/31/2021 11:05 AM CDT Inhaled Oxygen Concentration - - Weight 81.5 kg (179 lb 9.6 oz) 10/20/2021 2:49 P M CDT Height 165.1 cm (5' 5) 10/20/2021 2:49 PM CDT Body Mass Index 29.89 10/20/2021 2:49 PM CDT Plan of Treatment Health Maintenance Due Date Last Done Comments Depression Screening 1965 Hepatitis C Screening 1965 DTaP/Tdap/Td Vaccine (1 - Tdap) 1976 Hepatitis B Screening 12/31/1983 Regular Well Visit/Exam 18-64 12/31/1983 Zoster Vaccine (1 of 2) 12/31/2015 Breast Cancer Screening-Mammogram 11/07/2021 11/07/2020 Covid-19 Vaccine ( season) 2025 03/31/2021, 07/06/2020, 06/15/2020 Influenza Vaccine (#1) 2025 03/31/2021 Colon Cancer Screening-Colonoscopy 11/01/2031 10/31/2021 Colon Cancer Screening-CT Colonography Discontinued 10/31/2021 Colon Cancer Screening-DNA Stool Discontinued 10/31/2021 Colon Cancer Screening-FIT Discontinued 10/31/2021 Colon Cancer Screening-Sigmoidoscopy Discontinued 10/31/2021 Pneumococcal vaccine <65 Aged Out No longer eligible based on patient's age to complete this topic Procedures Procedure Name Priority Date/Time Associated Diagnosis Comments COLONOSCOPY 10/31/2021 8:58 AM CDT SCREENING MAMMOGRAM BILATERAL W TITO Schedule Routine, Read Routine (OP Routine) 11/07/2020 9:34 AM CDT Encounter for screening mammogram for malignant neoplasm of breast from Last 3 Months or Most Recently Relevant to Health Maintenance Results * COLONOSCOPY (10/31/2021 8:58 AM CDT) Anatomical Region Laterality Modality Other Narrative Procedure Note Montana Robert MD - 10/31/2021 8:58 AM CDT [facility] Patient Name: Margaret Sewell Procedure Date: 10/31/2021 8:58 AM Date of : 1965 Admit Type: Outpatient Age: 55 Gender: Female Attending MD: Montana Robert M.D. Room: [facility] ENDOSCOPY ROOM 2 Note Status: Finalized Patient Profile: Refer to note in patient chart for documentation of history and physical. Procedure: Colonoscopy Indications: Screening for colorectal malignant neoplasm, Last colonoscopy: 2009 Referring MD: Duke Bell M.D. Providers: Montana Robert M.D. Impression: - Hemorrhoids found on perianal exam. - The entire examined colon is normal. - No specimens collected. Recommendation: - Discharge patient to home. - Resume previous diet. - Continue present medications. - Repeat colonoscopy in 10 years for screening purposes. - Return to primary care physician as previously scheduled. Medicines: Propofol per Anesthesia Complications: No immediate complications. Estimated Blood Loss: Estimated blood loss: none. Procedure: Pre-Anesthesia Assessment: - This assessment was completed [Time ofAssessment] prior to the administration of sedation. The benefits, risks and alternatives of theprocedure and sedation were discussed and informed consentwas obtained. All questions were answered. Please referto the signed informed consent document in the medical record. The bowel preparation used was Miralax via single dose instruction. The bowel preparation used was bisacodyl tablets via single dose instruction.The scope was passed under direct vision. TheColonoscope [id number] was introduced through the anus and advanced to the the cecum, identified by appendiceal orifice and ileocecal valve. The colonoscopy was performed without difficulty. The patient tolerated the procedure well. The qualityof the bowel preparation was good. The ileocecalvalve, appendiceal orifice, and rectum werephotographed. Findings: Hemorrhoids were found on perianal exam. The colon (entire examined portion) appeared normal. Electronically signed by Montana Robert M.D. Montana Robert M.D. 10/31/2021 10:19:10 AM Number of Addenda: 0 Note Initiated On: 10/31/2021 8:58 AM Procedure Code(s): --- Professional --- G0121, Colorectal cancer screening; colonoscopy on individual not meeting criteria for high risk Diagnosis Code(s): --- Professional --- K64.9, Unspecified hemorrhoids Z12.11, Encounter for screening for malignant neoplasm of colon CPT copyright 2020 [employer]. All rights reserved. The codes documented in this report are preliminary and upon porcelain finish sprayer reviewmay be revised to meet current compliance requirements. Recognized by the [employer] for promoting quality in endoscopy Montana Robert MD ENDOSCOPY PROCEDURES Final Re sult * Screening Mammogram Bilateral W Tito (11/07/2020 9:34 AM CDT) Anatomical Region Laterality Modality Breast Bilateral Mammography Addenda Addendum by Sophia Estrella MD on 12/26/2020 4:23 PM CDT ADDENDED REPORT 12/26/2020 at 16:23:08 Addendum: The present examination has been compared to prior imaging studies performed at [facility] on 09/01/2016 and 09/16/2018. Mammogram Findings: There is asymmetry in the posterior upper mediolateral oblique view of the left breast. Asymmetry has decreased in size. Impression: Upon further review, asymmetry in the left breast is benign. Annual screening mammography is recommended. OVERALL FINAL ASSESSMENT: BI-RADS CATEGORY 2: Benign. THIS REPORT HAS BEEN ADDENDED Narrative 11/18/2020 11:53 AM CDT ORIGINAL REPORT Mammogram Technique: Bilateral Digital Breast Tomosynthesis, Bilateral C-view 2D Screening mammogram. Views obtained: bilateral craniocaudal and bilateral mediolateral oblique. Computer Aided Detection was performed. Mammogram Findings: No prior imaging studies are available for comparison. The breasts are heterogeneously dense, which may obscure small masses. There is asymmetry in the posterior upper mediolateral oblique view of the left breast. There is no suspicious abnormality in the right breast. Impression: Asymmetry in the left breast requires additional evaluation. COMPARISON TO PRIOR FILMS is recommended. OVERALL FINAL ASSESSMENT: BI-RADS CATEGORY 0: Incomplete: Need Additional Imaging Evaluation - Comparison with Prior Studies Procedure Note Sophia Estrella MD - 12/26/2020 ORIGINAL REPORT Mammogram Technique: Bilateral Digital Breast Tomosynthesis, Bilateral C-view 2D Screening mammogram. Views obtained: bilateral craniocaudal and bilateral mediolateral oblique. Computer Aided Detection was performed. Mammogram Findings: No prior imaging studies are available for comparison. The breasts are heterogeneously dense, which may obscure small masses. There is asymmetry in the posterior upper mediolateral oblique view ofthe left breast. There is no suspicious abnormality in the right breast. Impression: Asymmetry in the left breast requires additional evaluation. COMPARISONTO PRIOR FILMS is recommended. OVERALL FINAL ASSESSMENT: BI-RADS CATEGORY 0: Incomplete: Need Additional Imaging Evaluation -Comparison with Prior Studies Teto Russell MD IMG MAMMO PROCEDURES Edited R esult - Final from Last 3 Months or Most Recently Relevant to Health Maintenance Insurance [employer] ACCESS OOS [employer]OS Advance Directives For more information, please contact: [phone] * Full Code (Latest Code Status on File) Date Activated Date Inactivated Comments 10/31/2021 8:46 AM 10/31/2021 3:33 PM * Full Code Date Activated Date Inactivated Comments 10/31/2021 8:45 AM 10/31/2021 8:46 AM Care Teams Repairer Relationship Specialty Start Date End Date Duke Bell MD PCP - General Family Medicine 10/28/20
--- OUTSIDE RECORDS SUMMARY | 2025-05-04 10:11 | XMS_ITS | Patient Health Record ---
Author Organization [facility] [employer] Address [address] [place] [address] Care Team Providers Care Architecture Consultant Name Role Phone Cristofer Banks Unavailable [phone] Reason For Referral No Information Medications Medication SIG (Take, Route, Fr equency, Duration) Notes Start Date End Date Status Xanax 0.25 MG Tablet Oral 01/23/2021 Active Immunizations Vaccine Route Administration Date Status Comme nts Influenza virus vaccine, quadrivalent (IIV4), split virus, 0.25 mL dosage Unknown 04/27/2018 Administered Social History Social History Additional Details Category Social Info Options Details Migrated Social History Migrated Social History Alcohol Intake: Occasional 04/30/2020,Tobacco Years: Never smoker 04/30/2020 Plan Of Treatment No Information Medical (General) History Surgical History Surgery Date(Month/Year) Hysterectomy/revise vagina (50928) 2008 Endometr ablate thermal (17572) Removal of gallbladder (27955) Tonsilectomy/adenoids
== END 2025-05-04 09:29 | disposition home or self-care (01) ==
LOC: ANHFOHIMG 09:30
PROVIDERS: PCP Family Medicine; Visit Provider Obstetrics & Gynecology
DX: Z12.31 Encounter for screening mammogram for malignant neoplasm of breast (principal)
CPT/HCPCS: 77063; 77067